=== PATIENT | female | born 1960 | race Caucasian/White ===

== ENCOUNTER 2017-03-03 12:49 | Emergency (ER) | payer OTHER ==
[2017-03-03] MEDS ORDERED: Sodium Chloride 0.9% 1,000 ML IV ONE ×3 (13:06→17:34)
[2017-03-03] MEDS ORDERED: Sodium Chloride 0.9% 10 ML Syringe FLUSH PRN (13:06)
--- NOTE | 2017-03-03 14:15 | EDM.PDOC ---
ED HPI GENERAL MEDICAL PROBLEM - General Chief Complaint: Gastrointestinal Problem Stated Complaint: DEHYDRATED Time Seen by Provider: 03/03/17 12:57 Source of Information: Reports: Patient History Limitations: Reports: No Limitations - History of Present Illness INITIAL COMMENTS - FREE TEXT/NARRATIVE: The patient is a 57-year-old female with a history of Crohn's disease with chief complaint of diarrhea and weakness. She states that she's been feeling ill for a couple of months now. She has daily diarrhea, multiple episodes per day. She's been feeling a little bit worse for the past few days. Was seen at clinic and was noted to be hypotensive so sent here for further evaluation. No vomiting. She does have some nausea. Decreased appetite. She's been able to drink fluids but hasn't really been able to eat much in quite some time. She's been losing weight. Denies abdominal pain. Has about 6 episodes of watery diarrhea daily. No fevers. No chest pain or shortness of breath. She hasn't seen her high density finishing operator in a while, no recent medication changes. States that she really doesn't tolerate steroids. No urinary symptoms. - Related Data Allergies Allergy/AdvReac Type Severity Reaction Status Date / Time codeine Allergy Hives Verified 03/03/17 12:56 morphine Allergy Swelling Verified 03/03/17 12:56 Home Meds: Home Meds Albuterol Sulfate [Proair Hfa] 8.5 gm IH ASDIRECTED PRN 03/03/17 [History] Cyanocobalamin (Vitamin B-12) [Cyanocobalamin Injection] 1,000 mcg IJ ASDIRECTED 03/03/17 [History] Ergocalciferol (Vitamin D2) [Vitamin D2] 50,000 units PO Q7D 03/03/17 [History] Fluticasone Propionate [Flovent HFA 110 MCG] 12 gm INH BID PRN 03/03/17 [History ] Folic Acid 1 mg PO DAILY 03/03/17 [History] Lisinopril 20 mg PO DAILY 03/03/17 [History] Metoprolol Succinate 50 mg PO DAILY 03/03/17 [History] Omeprazole 20 mg PO DAILY 03/03/17 [History] sulfaSALAzine 500 mg PO TID 03/03/17 [History] Past Medical History Respiratory History: Reports: Croup Gastrointestinal History: Reports: Other (See Below) Other Gastrointestinal History: Crohn's; esophageal strictures that needs dilatation Social & Family History - Tobacco Use Smoking Status *Q: Current Every Day Smoker Years of Tobacco use: 40 Packs/Tins Daily: 1.5 - Recreational Drug Use Recreational Drug Use: No ED ROS GENERAL - Review of Systems Review Of Systems: See Below Constitutional: Reports: Malaise, Weakness, Fatigue. Denies: Fever HEENT: Reports: No Symptoms Respiratory: Denies: Shortness of Breath, Cough Cardiovascular: Denies: Chest Pain Endocrine: Reports: No Symptoms GI/Abdominal: Reports: Diarrhea, Nausea. Denies: Abdominal Pain : Denies: Dysuria Musculoskeletal: Reports: No Symptoms Skin: Reports: No Symptoms Neurological: Reports: Dizziness ED EXAM, GI/ABD - Physical Exam Exam: See Below Exam Limited By: No Limitations General Appearance: Alert, WD/WN, No Apparent Distress Ears: Normal External Exam Nose: Normal Inspection Throat/Mouth: Normal Inspection, Normal Oropharynx, No Airway Compromise Head: Atraumatic, Normocephalic Neck: Normal Inspection, Supple, Non-Tender, Full Range of Motion Respiratory/Chest: No Respiratory Distress, Lungs Clear, Normal Breath Sounds, Chest Non-Tender Cardiovascular: Normal Peripheral Pulses, Regular Rate, Rhythm, No Murmur GI/Abdominal Exam: Soft, Non-Tender, No Distention. No: Rebound Back Exam: Normal Inspection Extremities: Normal Inspection Neurological: Alert, Oriented, Normal Cognition, No Motor/Sensory Deficits Psychiatric: Normal Affect, Normal Mood Skin Exam: Warm, Dry, Intact, Normal Color, No Rash Course - Vital Signs Last Recorded V/S: Last Vital Signs Temp 36.6 C 03/03/17 12:56 Pulse 90 03/03/17 15:45 Resp 16 03/03/17 15:45 BP 93/56 L 03/03/17 15:45 Pulse Ox 97 03/03/17 15:45 - Orders/Labs/Meds Orders: Active Orders 24 hr Category Date Time Status Peripheral IV Care [RC] . DIRECTED Care 03/03/17 13:06 Active CRYPTOSPORIDIUM BY IMMUNOASSAY [MREF] Stat Lab 03/03/17 16:00 Received CULTURE STOOL + SHIGATOX [RM] Stat Lab 03/03/17 16:00 Received OVA & PARASITES BY IMMUNOASSAY [MREF] Stat Lab 03/03/17 16:00 Received SHIGA TOXIN 1 & 2 [MREF] Stat Lab 03/03/17 16:00 Received Sodium Chloride 0.9% [Saline Flush] Med 03/03/17 13:06 Active 10 ml FLUSH ASDIRECTED PRN Diarrhea Reflex Orders [OM.PC] PER UNIT ROUTINE Oth 03/03/17 16:15 Ordered Peripheral IV Insertion Adult [OM.PC] Routine Oth 03/03/17 13:06 Ordered Medication Orders Sodium Chloride (Saline Flush) 10 ml FLUSH ASDIRECTED PRN PRN Reason: Keep Vein Open Last Admin: 03/03/17 13:33 Dose: 10 ml Labs: Laboratory Tests 03/03/17 03/03/17 03/03/17 Range/Units 13:45 13:45 13:45 WBC 10.89 H (3.98-10.04) K/mm3 RBC 4.13 (3.98-5.22) M/mm3 Hgb 13.5 (11.2-15.7) gm/L Hct 41.0 (34.1-44.9) % MCV 99.3 H (79.4-94.8) fl MCH 32.7 H (25.6-32.2) pg MCHC 32.9 (32.2-35.5) g/dl RDW Std Deviation 42.6 (36.4-46.3) fL Plt Count 319 (182-369) K/mm3 MPV 9.9 (9.4-12.3) fl Neut % (Auto) 77.1 H (34.0-71.1) % Lymph % (Auto) 16.0 L (19.3-51.7) % [place] % (Auto) 6.2 (4.7-12.5) % Eos % (Auto) 0.1 L (0.7-5.8) Baso % (Auto) 0.2 (0.1-1.2) % Neut # (Auto) 8.41 H (1.56-6.13) K/mm3 Lymph # (Auto) 1.74 (1.18-3.74) K/mm3 [place] # (Auto) 0.67 H (0.24-0.36) K/mm3 Eos # (Auto) 0.01 L (0.04-0.36) K/mm3 Baso # (Auto) 0.02 (0.01-0.08) K/mm3 Sodium 136 (136-145) mEq/L Potassium 3.1 L (3.5-5.1) mEq/L Chloride 102 (98-107) mEq/L Carbon Dioxide 19 L (21-32) mEq/L Anion Gap 18.1 H (5-15) BUN 10 (7-18) mg/dL Creatinine 1.9 H (0.55-1.02) mg/dL Est Cr Clr Drug Dosing 23.11 mL/min Estimated GFR (MDRD) 27 (>60) mL/min BUN/Creatinine Ratio 5.3 L (14-18) Glucose 152 H (74-106) mg/dL Lactic Acid 1.5 (0.4-2.0) mmol/L Calcium 9.3 (8.5-10.1) mg/dL Magnesium 1.3 L (1.8-2.4) mg/dl Total Bilirubin 0.4 (0.2-1.0) mg/dL AST 21 (15-37) U/L ALT 29 (14-59) U/L Alkaline Phosphatase 75 (46-116) U/L Troponin I < 0.017 (0.00-0.056) ng/mL Total Protein 7.5 (6.4-8.2) g/dl Albumin 4.0 (3.4-5.0) g/dl Globulin 3.5 gm/dL Albumin/Globulin Ratio 1.1 (1-2) Lipase 266 (73-393) U/L Urine Color (Yellow) Urine Appearance (Clear) Urine pH (5.0-8.0) Ur Specific [place] (1.005-1.030) Urine Protein (Negative) Urine Glucose (UA) (Negative) Urine Ketones (Negative) Urine Occult Blood (Negative) Urine Nitrite (Negative) Urine Bilirubin (Negative) Urine Urobilinogen (0.2-1.0) Ur Leukocyte Esterase (Negative) Urine RBC (0-5) /hpf Urine WBC (0-5) /hpf Ur Epithelial Cells (0-5) /hpf Urine Bacteria (FEW) /hpf Urine Mucus (FEW) /hpf C.difficile [id number]-[id number] C. difficile Tox (PCR) 03/03/17 03/03/17 03/03/17 Range/Units 14:00 16:00 16:40 WBC (3.98-10.04) K/mm3 RBC (3.98-5.22) M/mm3 Hgb (11.2-15.7) gm/L Hct (34.1-44.9) % MCV (79.4-94.8) fl MCH (25.6-32.2) pg MCHC (32.2-35.5) g/dl RDW Std Deviation (36.4-46.3) fL Plt Count (182-369) K/mm3 MPV (9.4-12.3) fl Neut % (Auto) (34.0-71.1) % Lymph % (Auto) (19.3-51.7) % [place] % (Auto) (4.7-12.5) % Eos % (Auto) (0.7-5.8) Baso % (Auto) (0.1-1.2) % Neut # (Auto) (1.56-6.13) K/mm3 Lymph # (Auto) (1.18-3.74) K/mm3 [place] # (Auto) (0.24-0.36) K/mm3 Eos # (Auto) (0.04-0.36) K/mm3 Baso # (Auto) (0.01-0.08) K/mm3 Sodium 140 (136-145) mEq/L Potassium 4.2 (3.5-5.1) mEq/L Chloride 110 H (98-107) mEq/L Carbon Dioxide 21 (21-32) mEq/L Anion Gap 13.2 (5-15) BUN 8 (7-18) mg/dL Creatinine 1.3 H (0.55-1.02) mg/dL Est Cr Clr Drug Dosing 33.78 mL/min Estimated GFR (MDRD) 42 (>60) mL/min BUN/Creatinine Ratio 6.2 L (14-18) Glucose 118 H (74-106) mg/dL Lactic Acid (0.4-2.0) mmol/L Calcium 8.1 L (8.5-10.1) mg/dL Magnesium (1.8-2.4) mg/dl Total Bilirubin 0.3 (0.2-1.0) mg/dL AST 19 (15-37) U/L ALT 26 (14-59) U/L Alkaline Phosphatase 64 (46-116) U/L Troponin I (0.00-0.056) ng/mL Total Protein 6.5 (6.4-8.2) g/dl Albumin 3.5 (3.4-5.0) g/dl Globulin 3.0 gm/dL Albumin/Globulin Ratio 1.2 (1-2) Lipase (73-393) U/L Urine Color Yellow (Yellow) Urine Appearance Slt cloudy H (Clear) Urine pH 5.5 (5.0-8.0) Ur Specific [place] 1.025 (1.005-1.030) Urine Protein 2+ H (Negative) Urine Glucose (UA) Negative (Negative) Urine Ketones Negative (Negative) Urine Occult Blood Negative (Negative) Urine Nitrite Negative (Negative) Urine Bilirubin 3+ H (Negative) Urine Urobilinogen 0.2 (0.2-1.0) Ur Leukocyte Esterase Negative (Negative) Urine RBC 0-5 (0-5) /hpf Urine WBC 5-10 H (0-5) /hpf Ur Epithelial Cells 10-20 H (0-5) /hpf Urine Bacteria Many H (FEW) /hpf Urine Mucus Moderate H (FEW) /hpf C.difficile [id number]-[id number] Presumptive negative C. difficile Tox (PCR) Negative Meds: Medications Generic Name Dose Route Start Last Admin Trade Name Freq PRN Reason Stop Dose Admin Sodium Chloride 10 ml 03/03/17 13:06 03/03/17 13:33 Saline Flush FLUSH 10 ml ASDIRECTED PRN Administration Keep Vein Open Discontinued Medications Generic Name Dose Route Start Last Admin Trade Name Freq PRN Reason Stop Dose Admin Sodium Chloride 1,000 mls @ 1,000 mls/hr 03/03/17 13:06 03/03/17 13:32 Normal Saline IV 03/03/17 14:05 1,000 mls/hr ONETIME ONE Administration Magnesium Sulfate 2 gm/ Premix 50 mls @ 25 mls/hr 03/03/17 14:51 03/03/17 14: 58 IV 03/03/17 16:50 25 mls/hr ONETIME ONE Administration Sodium Chloride 1,000 mls @ 1,000 mls/hr 03/03/17 14:51 03/03/17 14:57 Normal Saline IV 08/03/17 15:50 1,000 mls/hr ONETIME ONE Administration Sodium Chloride 1,000 mls @ 1,000 mls/hr 03/03/17 17:34 03/03/17 17:50 Normal Saline IV 03/03/17 18:33 Not Given ONETIME ONE Potassium Chloride 40 meq 03/03/17 14:51 03/03/17 15:16 Potassium Chloride PO 03/03/17 14:52 40 meq ONETIME ONE Administration - Re-Assessments/Exams Free Text/Narrative Re-Assessment/Exam: 03/03/17 15:40 Potassium and magnesium low, replaced. Creatinine 1.9. Pt not aware of any prior renal problems. Suspect may be related to chronic dehydration lately. She is still adamant that she really doesn't want to be admitted. States she doesn't tolerate steriods - doesn't recall exactly what her reaction is but states "it was bad" and that she in no circumstances would want to be on them again. Will recheck electrolytes after 2L NS. Meanwhile, she's feeling better , has been eating and drinking. Discussed with Dr. Arias, high density finishing operator ammunition supervisor for [facility]. His main recommendation is that patient get an for very close follow-up in clinic if she doesn't want to be transferred. Suggested possibly adding mesalamine however this medication can cause renal insufficiency and given elevated creatinine we will hold off on that today. Stool studies have been sent, discussed with patient that she should obtain these results to share with her high density finishing operator when she sees her. 03/03/17 18:56 Repeat creatinine is 1.3 after 2 L. Patient feels better and has been tolerating by mouth and very much wants to go home. Discussed need for follow-up , need for repeat creatinine and possibly nephrology referral if not improved. She will call her gastroenterology clinic in the morning to arrange for close follow-up. Departure - Departure Time of Disposition: 17:11 Disposition: Home, Self-Care 01 Clinical Impression: Nausea alone, Renal insufficiency Diarrhea Qualifiers: Diarrhea type: unspecified type Qualified Code(s): R19.7 - Diarrhea, unspecified Crohn's disease Qualifiers: Gastrointestinal tract location: unspecified location Digestive disease complication type: without complication Qualified Code(s): K50.90 - Crohn's disease, unspecified, without complications - Discharge Information Instructions: Nausea, Adult, Diarrhea, Adult, Chronic Kidney Disease Referrals: Letha Valente KEY PERSON [Primary Care Provider] - Forms: ED Department Discharge Additional Instructions: 1. Follow up with your gastroenterology clinic in [place] as soon as possible. 2. We sent stool studies, which have not resulted. You may call medical records to get these results. The gastroenterology office can also help you request records. 3. Drink plenty of fluids. Consider taking 1 tab of immodium daily to reduce the diarrhea. 4. Your kidney function today is not completely normal. Your creatinine was initially 1.9 (too high), then 1.3 (better but still not quite normal) after fluids. Your primary doctor should recheck this lab value. Your primary doctor may refer you to consult with hand painter (kidney specialist) if this number doesn't normalize completely. 5. Return to the ED if you have worsening diarrhea, vomiting, abdominal pain, or any other concerning symptoms - My Orders Last 24 Hours: My Active Orders 03/03/17 13:06 Peripheral IV Care [RC] . DIRECTED Sodium Chloride 0.9% [Saline Flush] 10 ml FLUSH ASDIRECTED PRN Peripheral IV Insertion Adult [OM.PC] Routine 03/03/17 16:00 CRYPTOSPORIDIUM BY IMMUNOASSAY [MREF] Stat CULTURE STOOL + SHIGATOX [RM] Stat OVA & PARASITES BY IMMUNOASSAY [MREF] Stat SHIGA TOXIN 1 & 2 [MREF] Stat 03/03/17 16:15 Diarrhea Reflex Orders [OM.PC] PER UNIT ROUTINE - Assessment/Plan Last 24 Hours: My Active Orders 03/03/17 13:06 Peripheral IV Care [RC] . DIRECTED Sodium Chloride 0.9% [Saline Flush] 10 ml FLUSH ASDIRECTED PRN Peripheral IV Insertion Adult [OM.PC] Routine 03/03/17 16:00 CRYPTOSPORIDIUM BY IMMUNOASSAY [MREF] Stat CULTURE STOOL + SHIGATOX [RM] Stat OVA & PARASITES BY IMMUNOASSAY [MREF] Stat SHIGA TOXIN 1 & 2 [MREF] Stat 03/03/17 16:15 Diarrhea Reflex Orders [OM.PC] PER UNIT ROUTINE
[2017-03-03] MEDS ORDERED: Potassium Chloride 10% 20 MEQ/15 ML Soln 30 ML UD Cup PO ONE (14:51)
[2017-03-03] MEDS ORDERED: Magnesium Sulfate/Water 2 GM in Premix Bag 1 BAG IV ONE (14:51)
[2017-03-03 15:46] VITALS: BP 93/56
== END 2017-03-03 17:45 | disposition home or self-care (01) ==
LOC: JD.ED 12:49
DX: K50.90 Crohn's disease, unspecified, without complications (principal); R11.0 Nausea; N28.9 Disorder of kidney and ureter, unspecified; F17.210 Nicotine dependence, cigarettes, uncomplicated; Z79.899 Other long term (current) drug therapy; Z88.5 Allergy status to narcotic agent
CPT/HCPCS: 36415; 80053; 81001; 83605; 83690; 83735; 84484; 85025; 87046; 87328; 87329; 87427; 87493; 89055; 96361; 96365; 96366; 99284; A9270; J7040; J7050; J3475

== ENCOUNTER 2017-11-18 14:51 | Emergency (ER) | payer OTHER ==
[2017-11-18 15:06] VITALS: BP 150/84
--- NOTE | 2017-11-18 15:22 | EDM.PDOC ---
ED HPI GENERAL MEDICAL PROBLEM - General Chief Complaint: Cardiovascular Problem Stated Complaint: LOW POTASSIUM SENT BY Time Seen by Provider: 11/18/17 15:22 Source of Information: Reports: Patient History Limitations: Reports: No Limitations - History of Present Illness INITIAL COMMENTS - FREE TEXT/NARRATIVE: Patient is a 57-year-old female with history of Crohn's disease presents to the clinic today after receiving blood work in [place] was completed revealing a k+ level 2.5. They instructed the patient come to the ED for potassium supplementation. Patient states she is feeling fine. She has no palpitations, dizziness, chest pain, shortness of breath, abdominal discomfort, dysuria, muscle cramps, blood in her stool, or any additional complaints. Patient does have a persistent cough and diarrhea. Patient is a chronic smoker. She is ready be discharged home when able. Patient states she ran out of her potassium supplements last week. Patient is currently on metoprolol extended release 25 mg daily, vitamin D 2, Flovent, omeprazole, folic acid, vitamin B-12, pro-air, and sulfasalazine. - Related Data Allergies Allergy/AdvReac Type Severity Reaction Status Date / Time codeine Allergy Hives Verified 11/18/17 15:06 morphine Allergy Swelling Verified 11/18/17 15:06 Home Meds: Home Meds Albuterol Sulfate [Proair Hfa] 8.5 gm IH ASDIRECTED PRN 03/03/17 [History] Cyanocobalamin (Vitamin B-12) [Cyanocobalamin Injection] 1,000 mcg IJ ASDIRECTED 03/03/17 [History] Ergocalciferol (Vitamin D2) [Vitamin D2] 50,000 units PO Q7D 03/03/17 [History] Fluticasone Propionate [Flovent HFA 110 MCG] 12 gm INH BID PRN 03/03/17 [History ] Folic Acid 1 mg PO DAILY 03/03/17 [History] Metoprolol Succinate 25 mg PO DAILY 03/03/17 [History] Omeprazole 20 mg PO DAILY 03/03/17 [History] sulfaSALAzine 500 mg PO TID 03/03/17 [History] Magnesium Chloride [Slow-Mag] 71.5 mg PO DAILY #30 tablet.dr 11/18/17 [Rx] Potassium Chloride [Klor-Con M20] 20 meq PO QAM #30 tab.er 11/18/17 [Rx] Past Medical History Cardiovascular History: Reports: Hypertension Respiratory History: Reports: Croup Gastrointestinal History: Reports: Other (See Below) Other Gastrointestinal History: Crohn's; esophageal strictures that needs dilatation Social & Family History - Tobacco Use Smoking Status *Q: Current Every Day Smoker Years of Tobacco use: 30 Packs/Tins Daily: 1 - Recreational Drug Use Recreational Drug Use: No ED ROS GENERAL - Review of Systems Review Of Systems: ROS reveals no pertinent complaints other than HPI. Constitutional: Reports: No Symptoms HEENT: Reports: No Symptoms Respiratory: Reports: No Symptoms Cardiovascular: Reports: No Symptoms GI/Abdominal: Reports: Diarrhea. Denies: Abdominal Pain, Black Stool, Bloody Stool, Nausea, Vomiting : Reports: No Symptoms ED EXAM, GENERAL - Physical Exam Exam: See Below Exam Limited By: No Limitations General Appearance: Alert, WD/WN, No Apparent Distress Ears: Hearing Grossly Normal Nose: Normal Inspection Throat/Mouth: Normal Voice, No Airway Compromise Respiratory/Chest: No Respiratory Distress, Normal Breath Sounds, No Accessory Muscle Use, Chest Non-Tender, Wheezing (faint expiratory wheezes bilaterally, no respi distress) Cardiovascular: Normal Peripheral Pulses, Regular Rate, Rhythm Peripheral Pulses: 4+: Radial (R) GI/Abdominal: Normal Bowel Sounds, Soft, Non-Tender, No Organomegaly, No Distention Extremities: Normal Inspection Neurological: Alert, Oriented, CN II-XII Intact, Normal Cognition, No Motor/ Sensory Deficits Psychiatric: Normal Affect, Normal Mood Skin Exam: Warm, Dry, Intact, Normal Color Course - Vital Signs Last Recorded V/S: Last Vital Signs Temp 98.7 F 11/18/17 15:01 Pulse 80 11/18/17 15:01 Resp 16 11/18/17 15:01 BP 150/84 H 11/18/17 15:01 Pulse Ox 98 11/18/17 15:01 - Orders/Labs/Meds Labs: Laboratory Tests 11/18/17 11/18/17 Range/Units 15:40 15:40 Sodium 143 (136-145) mEq/L Potassium 2.5 L (3.5-5.1) mEq/L Chloride 106 (98-107) mEq/L Carbon Dioxide 26 (21-32) mEq/L Anion Gap 13.5 (5-15) BUN 6 L (7-18) mg/dL Creatinine 0.8 (0.55-1.02) mg/dL Est Cr Clr Drug Dosing 65.86 mL/min Estimated GFR (MDRD) > 60 (>60) mL/min BUN/Creatinine Ratio 7.5 L (14-18) Glucose 113 H (74-106) mg/dL Calcium 8.6 (8.5-10.1) mg/dL Magnesium 0.9 L (1.8-2.4) mg/dl Meds: Medications Discontinued Medications Generic Name Dose Route Start Last Admin Trade Name Freq PRN Reason Stop Dose Admin Potassium Chloride 10 meq/ 100 mls @ 100 mls/hr 11/18/17 16:10 11/18/17 16:27 Premix IV 11/18/17 17:09 100 mls/hr ASDIRECTED ONE Administration Potassium Chloride 10 meq/ 100 mls @ 100 mls/hr 11/18/17 16:11 11/18/17 17:35 Premix IV 11/18/17 17:10 100 mls/hr ONETIME ONE Administration Sodium Chloride 1,000 mls @ 100 mls/hr 11/18/17 16:30 11/18/17 16:27 Normal Saline IV 100 mls/hr ASDIRECTED AZEB Administration Magnesium Oxide 800 mg 11/18/17 18:41 11/18/17 18:48 Magnesium Oxide PO 11/18/17 18:42 800 mg ONETIME ONE Administration Potassium Chloride 40 meq 11/18/17 16:10 11/18/17 16:27 Klor-Con M20 PO 11/18/17 16:11 40 meq ONETIME ONE Administration Sodium Chloride 10 ml 11/18/17 16:10 11/18/17 16:29 Saline Flush FLUSH 10 ml ASDIRECTED PRN Administration Keep Vein Open - Re-Assessments/Exams Free Text/Narrative Re-Assessment/Exam: It was reported to the patient her blood work completed today at [facility] revealed potassium of 2.5. patient has Crohn's disease and has chronic diarrhea with changes. She ran out of her potassium supplementation last week thus drop in her potassium levels. She has no complaints at this time. Her boots are on and ready to go home when available. Will repeat BMP and obtain EKG. EKG normal sinus rhythm with no acute ST changes. 11/18/17 16:12 Labs reviewed: Potassium 2.5 with normal creatinine. Due to patient's high volume diarrhea she's increase for further depletion. Though I did rather like to go with oral potassium Will go ahead and start an IV and provide 20 mEq of potassium with NS 100mls/hr. She'll also receive 40 mEq by mouth. Chest x-ray impression: Findings felt to be incidental as noted above. Nothing acute is otherwise seen. Magnesium is 0.9 lowI have ordered magnesium 800 mg po. Patient will not wait for mag IV. She is requesting to be discharged home after potassium infusion. Discharge instructions as documented. Departure - Departure Time of Disposition: 18:45 Disposition: Home, Self-Care 01 Condition: Good Clinical Impression: Hypomagnesemia, Hypokalemia Prescriptions: Magnesium Chloride [Slow-Mag] 71.5 mg PO DAILY #30 tablet. Potassium Chloride [Klor-Con M20] 20 meq PO QAM #30 tab.er Instructions: Hypomagnesemia, Hypokalemia Referrals: PCP,Not In Area [Primary Care Provider] - Forms: ED Department Discharge Additional Instructions: Magnesium and potassium were both low. Thus will have you take slow mag twice a day for 2 days and potassium 20meq twice a day for 2 days. Thereafter take both the slow mag and potassium once daily. Continue to take all home medications as prescribed. Please see PCP this coming Tuesday for repeat blood work to ensure potassium and mg levels are normalizing. Return to the E.D. if you develop any new or worsening symptoms.
[2017-11-18] MEDS ORDERED: Potassium Chloride 20 MEQ Tab.ER PO ONE (16:10)
[2017-11-18] MEDS ORDERED: Sodium Chloride 0.9% 10 ML Syringe FLUSH PRN (16:10)
[2017-11-18] MEDS ORDERED: Potassium Chloride 10 MEQ in Premix Bag 1 BAG IV ONE ×2 (16:10→16:11)
[2017-11-18] MEDS ORDERED: Sodium Chloride 0.9% 1,000 ML IV SCH (16:30)
--- NOTE | 2017-11-18 16:39 | CR ---
Chest: Frontal view of the chest was obtained utilizing portable technique. Comparison: No prior chest x-ray. Thick linear density is seen within the left base most likely representing atelectasis. Lungs otherwise are clear. Heart size and mediastinum are normal. Mild deformity of the right clavicle is seen compatible with old fracture which appears healed. Surgical clips are seen from prior cholecystectomy. Impression: 1. Findings felt to be incidental as described above. Nothing acute is otherwise seen. Diagnostic code #2
[2017-11-18] MEDS ORDERED: Magnesium Oxide 400 MG Tab PO ONE (18:41)
== END 2017-11-18 18:56 | disposition home or self-care (01) ==
LOC: JD.ED 14:51
DX: E83.42 Hypomagnesemia (principal); E87.6 Hypokalemia; I10 Essential (primary) hypertension; F17.210 Nicotine dependence, cigarettes, uncomplicated; Z88.5 Allergy status to narcotic agent; Z79.899 Other long term (current) drug therapy
CPT/HCPCS: 36415; 71045; 80048; 83735; 93005; 96365; 96366; 99285; A9270; J3480; J7040; J7050; 99284

== ENCOUNTER 2018-02-02 21:29 | Emergency (ER) | payer OTHER ==
--- NOTE | 2018-02-02 22:15 | EDM.PDOC ---
ED HPI GENERAL MEDICAL PROBLEM - General Chief Complaint: Abdominal Pain Stated Complaint: DEHYDRATED,HEADACHE AND STOMACH ISSUES Time Seen by Provider: 02/02/18 22:15 Source of Information: Reports: Patient History Limitations: Reports: No Limitations - History of Present Illness INITIAL COMMENTS - FREE TEXT/NARRATIVE: 57-year-old female presents the ED with acute onset of nausea and vomiting starting about 0200 hrs. this morning. Surgical he has developed increased diarrhea. She states she has chronic diarrhea because of Crohn's disease diagnosed greater than 25 years ago. She had a foot and a half of her distal ileum removed 20 years ago. States stool is yellow in color and small quantities but she is gone up post to 40 times since 2:00 this morning. Emesis is been bilious without blood. She is now developing increased muscle cramps particularly her calves and her toes are curling up with spasm some pain in her hip and quad musculature as well. She took a Zofran sublingually without any relief of the nausea vomiting. She has no associated headache. On examination she is very warm to palpation and is febrile. States her cough from her COPD is no worse than normal. Doesn't hurt to breathe. States mild stomach cramps but no worse than normal. She doesn't believe that she got into any bad food. She but other family a members ate yesterday. Onset: Today Onset Date: 02/02/18 Onset Time: 02:00 Duration: Hour(s): Location: Reports: Abdomen, Generalized (Generalized muscle cramps feeling of generalized weakness. Lightheaded and dizzy. Week), Other (Cramping mostly in her lower extremities toes calves and thighs.) Quality: Reports: Ache, Other Severity: Severe (Strong muscular cramps in her lower extremities and toes.) Improves with: Reports: None Worsens with: Reports: None Context: Denies: Activity, Exercise, Lifting, Sick Contact, Trauma, Other Associated Symptoms: Reports: Cough (Chronic cough due to COPD but no worse than normal and sputum is unchanged in color), Fever/Chills, Headaches (Aware of chills but was not aware fever until examination), Loss of Appetite ( diffuse generalized headache. States her headache is pounding and throbbing.), Malaise, Nausea/Vomiting, Shortness of Breath, Other (Starting about 2:00 this morning diarrhea with small quantities of yellow mucus and fluid loss per rectum greater than 40 times today.). Denies: No Other Symptoms, cough w sputum , Diaphoresis, Rash (Chronically.), Seizure, Syncope Treatments VENEER JOINER: Reports: Other (see below) (Zofran 4 mg sublingual.) Bilateral Leg Pain Score (Numeric/FACES): 10 - Related Data Allergies Allergy/AdvReac Type Severity Reaction Status Date / Time codeine Allergy Hives Verified 02/02/18 22:13 morphine Allergy Swelling Verified 02/02/18 22:13 Home Meds: Home Meds Albuterol Sulfate [Proair Hfa] 8.5 gm IH ASDIRECTED PRN 03/03/17 [History] Cyanocobalamin (Vitamin B-12) [Cyanocobalamin Injection] 1,000 mcg IJ ASDIRECTED 03/03/17 [History] Ergocalciferol (Vitamin D2) [Vitamin D2] 50,000 units PO Q7D 03/03/17 [History] Fluticasone Propionate [Flovent HFA 110 MCG] 12 gm INH BID PRN 03/03/17 [History ] Metoprolol Succinate 25 mg PO DAILY 03/03/17 [History] Omeprazole 20 mg PO DAILY 03/03/17 [History] Magnesium Chloride [Slow-Mag] 71.5 mg PO DAILY #30 tablet.dr 11/18/17 [Rx] Potassium Chloride [Klor-Con M20] 20 meq PO QAM #30 tab.er 11/18/17 [Rx] Ondansetron [Zofran] 4 mg BUCCAL Q6H PRN #5 tab 02/03/18 [Rx] Past Medical History Cardiovascular History: Reports: Hypertension Respiratory History: Reports: COPD Gastrointestinal History: Reports: Other (See Below) Other Gastrointestinal History: Crohn's; esophageal strictures that needs dilatation - Past Surgical History GI Surgical History: Reports: Other (See Below) (She's had distal ileum resected about 18 inches of bowel removed 20 years ago because of Crohn's disease.) Social & Family History - Tobacco Use Smoking Status *Q: Current Every Day Smoker Years of Tobacco use: 40 Packs/Tins Daily: 1.5 - Caffeine Use Caffeine Use: Reports: Coffee - Recreational Drug Use Recreational Drug Use: No - Living Situation & Occupation Living situation: Reports: Occupation: Employed ED ROS GENERAL - Review of Systems Review Of Systems: See Below Constitutional: Reports: Fever, Chills, Malaise, Weakness, Fatigue, Decreased Appetite, Weight Loss HEENT: Reports: Glasses Respiratory: Reports: Shortness of Breath, Cough (On a cough but no worse than normal. Sputum is white to clear). Denies: Wheezing, Pleuritic Chest Pain ( Chronically due to COPD.), Hemoptysis Cardiovascular: Reports: No Symptoms, Blood Pressure Problem, Dyspnea on Exertion (Feels lightheaded weak and dizzy when standing today. Chronically), Lightheadedness. Denies: Chest Pain, Claudication, Orthopnea (Tends to be hypertensive.) Endocrine: Reports: Fatigue GI/Abdominal: Reports: Abdominal Pain (Chronic diarrhea since diagnosis of Crohn 's disease), Diarrhea (Dear diarrhea small quantities of yellow mucus watery stools times about 40 today.), Decreased Appetite, Nausea, Vomiting (Technical nausea and vomiting.). Denies: Black Stool, Bloody Stool, Constipation : Reports: No Symptoms Musculoskeletal: Reports: Other Neurological: Reports: No Symptoms (Generalized myalgia. Severe muscle cramps occurring in her lower extremities particularly her toes calves and quadriceps muscles along her hips.) Psychiatric: Reports: No Symptoms Hematologic/Lymphatic: Reports: No Symptoms Immunologic: Reports: No Symptoms ED EXAM, GI/ABD - Physical Exam Exam: See Below Exam Limited By: No Limitations General Appearance: Alert, WD/WN, No Apparent Distress, Other (He does feel quite warm to palpation.) Eyes: Bilateral: Normal Appearance ( Temperature by nurses recordings only 37.1 but she appears to be much warmer than this.) Throat/Mouth: Normal Inspection, Normal Lips, Normal Teeth Head: Atraumatic, Normocephalic Neck: Normal Inspection, Supple, Non-Tender, Full Range of Motion. No: Lymphadenopathy (L), Lymphadenopathy (R) Respiratory/Chest: No Respiratory Distress, Lungs Clear, No Accessory Muscle Use , Decreased Breath Sounds (Decreased breath sounds to the lower lung ferro posteriorly 25%), Wheezing (Occasional expiratory wheeze.) Cardiovascular: Normal Peripheral Pulses, Regular Rate, Rhythm, No Edema, No Gallop, No Murmur, Tachycardia (100/m) GI/Abdominal Exam: Soft (Hyperactive bowel sounds in all 4 quadrants the stomach.), Abnormal Bowel Sounds. No: Guarding, Rigid ( Soft palpation with no organomegaly or masses noted no peritoneal signs identified), Rebound Back Exam: Normal Inspection. No: CVA Tenderness (L), CVA Tenderness (R), Muscle Spasm Extremities: Normal Inspection, Normal Range of Motion, Non-Tender, No Pedal Edema Neurological: Alert, Oriented, CN II-XII Intact, Normal Cognition Psychiatric: Normal Mood, Flat Affect Skin Exam: Warm, Dry, Intact, Normal Color Course - Vital Signs Last Recorded V/S: Last Vital Signs Temp 37.1 C 02/02/18 21:45 Pulse 110 H 02/02/18 21:45 Resp 16 02/02/18 21:45 BP 157/98 H 02/02/18 21:45 Pulse Ox 96 02/02/18 21:45 - Orders/Labs/Meds Orders: Active Orders 24 hr Category Date Time Status Chest 1V Frontal [CR] Stat Exams 02/02/18 22:22 Taken URINALYSIS W/MICROSCOPIC [UA W/MICROSCOPIC] [URIN] Stat Lab 02/02/18 23:45 Ordered Dextrose 5%-0.9% NaCl [Dextrose 5%-Normal Saline] 1,000 Med 02/02/18 23:45 Active ml IV ASDIRECTED Dextrose 5%-Lactated Ringers 1,000 ml Med 02/02/18 22:30 Active IV ASDIRECTED Ketorolac [Toradol] Med 02/02/18 22:30 Active 30 mg IVPUSH ONETIME Medication Orders Dextrose/Lactated Ringer's (Dextrose 5%-Lactated Ringers) 1,000 mls @ 999 mls/ hr IV ASDIRECTED [facility] Last Admin: 02/02/18 22:35 Dose: 999 mls/hr Dextrose/Sodium Chloride (Dextrose 5%-Normal Saline) 1,000 mls @ 999 mls/hr IV ASDIRECTED [facility] Last Admin: 02/03/18 00:11 Dose: 999 mls/hr Ketorolac Tromethamine (Toradol) 30 mg IVPUSH ONETIME [facility] Last Admin: 02/02/18 22:37 Dose: 30 mg Labs: Laboratory Tests 02/02/18 02/02/18 02/02/18 Range/Units 22:35 22:35 23:45 WBC 8.86 (3.98-10.04) K/mm3 RBC 4.84 (3.98-5.22) M/mm3 Hgb 15.5 (11.2-15.7) gm/L Hct 45.4 H (34.1-44.9) % MCV 93.8 (79.4-94.8) fl MCH 32.0 (25.6-32.2) pg MCHC 34.1 (32.2-35.5) g/dl RDW Std Deviation 41.0 (36.4-46.3) fL Plt Count 254 (182-369) K/mm3 MPV 10.5 (9.4-12.3) fl Neutrophils % (Manual) 79 H (40-60) % Band Neutrophils % 0 (0-10) % Lymphocytes % (Manual) 17 L (20-40) % Atypical Lymphs % 0 % Monocytes % (Manual) 4 (2-10) % Eosinophils % (Manual) 0 L (0.7-5.8) % Basophils % (Manual) 0 L (0.1-1.2) Platelet Estimate Adequate RBC Morph Comment Normal Sodium 132 L (136-145) mEq/L Potassium 3.1 L (3.5-5.1) mEq/L Chloride 97 L (98-107) mEq/L Carbon Dioxide 21 (21-32) mEq/L Anion Gap 17.1 H (5-15) BUN 10 (7-18) mg/dL Creatinine 1.0 (0.55-1.02) mg/dL Est Cr Clr Drug Dosing 52.69 mL/min Estimated GFR (MDRD) 57 (>60) mL/min BUN/Creatinine Ratio 10.0 L (14-18) Glucose 116 H (74-106) mg/dL Calcium 9.6 (8.5-10.1) mg/dL Total Bilirubin 0.5 (0.2-1.0) mg/dL AST 26 (15-37) U/L ALT 24 (14-59) U/L Alkaline Phosphatase 97 (46-116) U/L C-Reactive Protein 4.5 H* (<1.0) mg/dL Total Protein 7.9 (6.4-8.2) g/dl Albumin 3.8 (3.4-5.0) g/dl Globulin 4.1 gm/dL Albumin/Globulin Ratio 0.9 L (1-2) Urine Color Yellow (Yellow) Urine Appearance Slt cloudy H (Clear) Urine pH 6.5 (5.0-8.0) Ur Specific Rumely 1.020 (1.005-1.030) Urine Protein 1+ H (Negative) Urine Glucose (UA) Trace H (Negative) Urine Ketones Negative (Negative) Urine Occult Blood Trace-intact H (Negative) Urine Nitrite Negative (Negative) Urine Bilirubin Negative (Negative) Urine Urobilinogen 0.2 (0.2-1.0) Ur Leukocyte Esterase Negative (Negative) Urine RBC 0-5 (0-5) /hpf Urine WBC 0-5 (0-5) /hpf Ur Epithelial Cells 5-10 H (0-5) /hpf Urine Bacteria Few (FEW) /hpf Urine Mucus Not seen (FEW) /hpf Meds: Medications Generic Name Dose Route Start Last Admin Trade Name Freq PRN Reason Stop Dose Admin Dextrose/Lactated Ringer's 1,000 mls @ 999 mls/hr 02/02/18 22:30 02/02/18 22: 35 Dextrose 5%-Lactated Ringers IV 999 mls/hr ASDIRECTED AZEB Administration Dextrose/Sodium Chloride 1,000 mls @ 999 mls/hr 02/02/18 23:45 02/03/18 00:11 Dextrose 5%-Normal Saline IV 999 mls/hr ASDIRECTED AZEB Administration Ketorolac Tromethamine 30 mg 02/02/18 22:30 02/02/18 22:37 Toradol IVPUSH 30 mg ONETIME AZEB Administration Discontinued Medications Generic Name Dose Route Start Last Admin Trade Name Freq PRN Reason Stop Dose Admin Hydromorphone HCl 0.5 mg 02/02/18 22:21 02/02/18 22:39 Dilaudid IVPUSH 02/02/18 22:22 0.5 mg ONETIME ONE Administration Potassium Chloride 10 meq/ 100 mls @ 100 mls/hr 02/02/18 23:20 02/03/18 00:02 Premix IV 02/03/18 00:19 100 mls/hr ONETIME ONE Administration Metoclopramide HCl 5 mg 02/02/18 22:20 02/02/18 22:36 Reglan IVPUSH 02/02/18 22:21 5 mg ONETIME ONE Administration - Radiology Interpretation Free Text/Narrative:: 57-year-old female presents to the ED with acute onset of nausea vomiting followed by excessive amount of diarrhea stool per rectum starting at 2:00 this morning. Emesis is been bilious without blood. She has Crohn's disease and has chronic diarrhea usually 3-6 times per day or every time she eats at least today she's got about 40 times a small quantities of yellow watery mucus. No feeling dehydrated with slight lightheadedness diffuse headache. Cramping of her toes calves and quadriceps muscles. She may well of loss and excessive amount of bicarbonate and potassium. Plan IV D5 Ringer's lactate at open. Toradol 30 mg IV with Dilaudid 0.5 mg IV and Reglan 5 mg IV for nausea and pain relief. Routine labs to be collected including a urinalysis and one view of the chest to be done as she is febrile to my examination. - Re-Assessments/Exams Free Text/Narrative Re-Assessment/Exam: 02/02/18 23:20 Labs reveal a normal white count at 8.86. Differential is pending. Hemoglobin is 15.5 with hematocrit of 45.4. Platelet count is 254,000. Sodium is mildly low at 132. Potassium is low at 3.1. Chloride is 97. Bicarbonate low-normal at 21. Anion gap is 17.1. BUN is 10 with a creatinine of 1.0. Estimated GFR is 57. Glucose is 116. Calcium is 9.6. Bilirubin is 0.5. AST is 26 with an ALT of 24. Alk phosphatase is 97. C-reactive protein is elevated at 4.5.. Chest x-ray reveals hyperinflated lung ferro with are clear. There is no cardiomegaly. 02/02/18 23:48 patient will be given second liter of IV fluids D5 normal saline at open. She will also require K rider with 10 mg potassium IV as well. Patient so advised. Awaiting a urinalysis. 02/03/18 00:09 urinalysis shows no signs of infection. The differential on the white count was 79% neutrophils and no band cells reported. It therefore appears that she may well just have a viral gastroenteritis. This is causing significant volume depletion and hypokalemia. She'll be given second liter of IV fluids and the potassium 10 mg IV as planned above. 02/03/18 01:56 has just about completed her second liter of IV fluids in the K rider has been infused. She'll be discharged to home to continue clear fluids particular Gatorade or Powerade on daily basis to maintain her electrolyte status. I suspect she may have a chronic hypokalemia due to her irritable bowel syndrome and Crohn's disease with frequent diarrhea. Departure - Departure Time of Disposition: 01:56 Disposition: Home, Self-Care 01 Condition: Fair Clinical Impression: Febrile illness, acute, Gastroenteritis, Dehydration, moderate, Muscle cramps, Low serum potassium - Discharge Information Prescriptions: Ondansetron [Zofran] 4 mg BUCCAL Q6H PRN #5 tab PRN Reason: nausea or vomiting Referrals: Letha Valente, [facility] [Primary Care Provider] - Forms: ED Department Discharge, ED Return to Work/School Form Additional Instructions: Evaluation the emergency room tonight in regards to development of significant cramping in your lower extremities involving feet toes tabs and upper thighs. History of a sudden onset of nausea vomiting and increased diarrhea stools since 2:00 yesterday morning. This resulted in volume depletion or dehydration and low serum potassium levels. You were found to have moderate dehydration and required 2 L of IV fluids to restore your fluid status. You also found to be quite low on potassium at 3.1 therefore received 10 mg of potassium intravenously as well. You did receive initial medications of Toradol 30 mg Dilaudid 0.5 mg IV with Zofran for relief of cramping and nausea vomiting. Treatment at home is to use Zofran under the tongue every 4-6 hours as needed for nausea relief. Her fluids such as Gatorade or Powerade 3-4 ounces sipped per hour will usually maintain hydration and help restore electrolyte imbalance. Should stay away from all dairy products and no apple or grape juice until stools are formed backup for at least diarrhea has returned to normal pattern. Once hungry try soda crackers. If tolerated may advance to soup such as turkey rice or chicken noodle etc. Most of the fluid but this been going around as of late has been lasting only 24 hours. - My Orders Last 24 Hours: My Active Orders 02/02/18 22:22 Chest 1V Frontal [CR] Stat 02/02/18 22:30 Dextrose 5%-Lactated Ringers 1,000 ml IV ASDIRECTED Ketorolac [Toradol] 30 mg IVPUSH ONETIME 02/02/18 23:45 URINALYSIS W/MICROSCOPIC [UA W/MICROSCOPIC] [URIN] Stat Dextrose 5%-0.9% NaCl [Dextrose 5%-Normal Saline] 1,000 ml IV ASDIRECTED - Assessment/Plan Last 24 Hours: My Active Orders 02/02/18 22:22 Chest 1V Frontal [CR] Stat 02/02/18 22:30 Dextrose 5%-Lactated Ringers 1,000 ml IV ASDIRECTED Ketorolac [Toradol] 30 mg IVPUSH ONETIME 02/02/18 23:45 URINALYSIS W/MICROSCOPIC [UA W/MICROSCOPIC] [URIN] Stat Dextrose 5%-0.9% NaCl [Dextrose 5%-Normal Saline] 1,000 ml IV ASDIRECTED
[2018-02-02] MEDS ORDERED: Metoclopramide 10 MG/2 ML SDV IVPUSH ONE (22:20)
[2018-02-02] MEDS ORDERED: HYDROmorphone 0.5 MG/0.5 ML SYRINGE IVPUSH ONE (22:21)
[2018-02-02] MEDS ORDERED: Dextrose 5%-Lactated Ringers 1,000 ML IV SCH (22:30)
[2018-02-02] MEDS ORDERED: Ketorolac 30 MG/ML SDV IVPUSH SCH (22:30)
[2018-02-02] MEDS ORDERED: Potassium Chloride 10 MEQ in Premix Bag 1 BAG IV ONE (23:20)
[2018-02-02] MEDS ORDERED: Dextrose 5%-0.9% NaCl 1,000 ML IV SCH (23:45)
[2018-02-03 02:16] VITALS: BP 108/62
--- NOTE | 2018-02-03 08:25 | CR ---
Chest: Portable view of the chest was obtained. Comparison: Prior chest x-ray of 11/18/17. Heart size and mediastinum are normal. Lungs are clear. Bony structures are grossly intact. Incidental note of old healed right clavicle fracture. Impression: 1. Nothing acute is seen on portable chest x-ray. Diagnostic code #2
== END 2018-02-03 02:10 | disposition home or self-care (01) ==
LOC: JD.ED 21:29
DX: K52.9 Noninfective gastroenteritis and colitis, unspecified (principal); E86.0 Dehydration; E87.6 Hypokalemia; R25.2 Cramp and spasm; I10 Essential (primary) hypertension; J44.9 Chronic obstructive pulmonary disease, unspecified; F17.210 Nicotine dependence, cigarettes, uncomplicated; Z88.5 Allergy status to narcotic agent; Z79.899 Other long term (current) drug therapy
CPT/HCPCS: 36415; 71045; 80053; 81001; 85007; 85027; 86140; 96361; 96365; 96375; 99284; J1170; J1885; J2765; J3480; J7042